=== PATIENT | male | born 1935 | race Caucasian/White ===

== ENCOUNTER → 2018-07-09 | Outpatient (CLI) | payer MEDICARE, BC ==
--- NOTE | 2018-07-09 14:48 | MR ---
EXAMINATION TYPE: MR knee RT wo con DATE OF EXAM: 07/09/2018 COMPARISON: Plain film from outside institution 04/23/2018 HISTORY: Pain in right knee TECHNIQUE: Multiplanar, multisequence imaging of the right knee is performed without IV contrast. FINDINGS: MEDIAL MENISCUS: Posterior horn of the medial meniscus shows abnormal increased signal extending to t he articular surface, the posterior horn is attenuated extending into the region of the body, possibl e meniscal cyst coronal image 16 at the medial aspect of the joint, anterior horn is intact LATERAL MENISCUS: Anterior and posterior horns are intact without tear. CRUCIATE LIGAMENTS: Anterior cruciate ligament shows somewhat redundant appearance, some increased si gnal within its substance, anterior cruciate ligament is intact COLLATERAL LIGAMENTS: The medial collateral ligament and lateral collateral ligament complex are inta ct and unremarkable. EXTENSOR MECHANISM: Visualized quadriceps and patellar tendons are intact. EFFUSION: Small joint effusion. POPLITEAL CYST: There is a sizable semimembranosus gastrocnemius cyst present measuring approximatel y 2.7 x 1.5 x 7 cm, fluid signal extends distal between the musculature of the gastrocnemius and the subcutaneous tissues which may represent a ruptured Voss's cyst, some luminal areas of abnormal sign al are present which may represent 3. TRICOMPARTMENT SPACES: Joint space loss in the medial compartment. 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 OTHER: Subcutaneous edema is present. IMPRESSION: Tear of the posterior horn the medial meniscus, possible ruptured semimembranosus gastrocnemius cyst as described. Small joint effusion. Additional findings above.
== END ==
LOC: RADMRIMAIN 10:39
PROVIDERS: ATTEND Orthopaedic Surgery
DX: S83.241A Other tear of medial meniscus, current injury, right knee, initial encounter (principal); M25.861 Other specified joint disorders, right knee